=== PATIENT | male | born 1985 | race Caucasian/White ===

== ENCOUNTER 2016-10-23 22:15 | Emergency (ER) | payer MEDICAID ==
[~2016-10-23] VITALS: Ht 172.7 cm; Wt 85.0 kg
[~2016-10-23 22:15] MED LIST: IBUP800T23 PO; PERI0.126 SWISH-SPIT
[2016-10-23 22:18] VITALS: BP 141/90; PULSE 98; RESP 16; TEMP 98.6; O2SAT 99
[2016-10-23] MEDS ORDERED: KETOROLAC TROMETHAMINE 30 MG/ML (IVP) VIAL IVP ONE (22:45)
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
--- NOTE | 2016-10-23 22:55 | PD ---
Physical Exam Narrative General: The patient is a well-developed well-nourished male in no acute distress. Head and Neck exam: Head is normocephalic atraumatic. Eyes: EOMI, pupils are equal round and reactive to light. Nose: Midline septum with pink mucous membranes Mouth: Dentition unremarkable. Moist mucus membranes. Posterior oropharynx is not erythematous. No tonsillar hypertrophy. Uvula midline. Airway patent. Neck: No palpable lymphadenopathy. No nuchal rigidity. No thyromegaly. Cardiovascular: Regular rate and rhythm without murmurs, gallops, or rubs. Lungs: Clear to auscultation bilaterally. No wheezes, rhonchi, or rales. Abdomen: Soft, without tenderness to palpation in all 4 quadrants of the abdomen. No guarding, rebound, or rigidity. Normal bowel sounds are audible Extremities: No clubbing, cyanosis, or edema. 2+ pulses in all 4 extremities. Back: No spinous process tenderness to palpation. No costovertebral angle tenderness to palpation. The patient reports that his pain is improved after pain medication was administered by Ubaldo. Neurologic Exam: Grossly nonfocal Skin Exam: No rash noted. Intact skin that is warm and dry. Data Data Last Documented VS Vital Signs Date Time Temp Pulse Resp B/P Pulse Ox O2 Delivery O2 Flow Rate FiO2 10/23/16 22:18 98.6 98 16 141/90 99 Room Air Orders Urinalysis - C+S If Indicated (10/23/16 22:28) Ct Abd/Pel W/O Iv Contrast (10/23/16 22:34) Ketorolac Inj (Toradol Inj) (10/23/16 22:45) Ketorolac Inj (Toradol Inj) (10/23/16 23:00) Urine Culture (10/23/16 22:45) Gc And Chlamydia Pcr (10/23/16 23:46) Ceftriaxone Inj (Rocephin Inj) (10/24/16 00:00) Azithromycin Powd Pack (Zithromax Powd P (10/24/16 00:00) Lidocaine 1% Inj (50 Ml) (Xylocaine 1% I (10/24/16 00:15) Labs Laboratory Tests Test 10/23/16 22:45 Urine Color YELLOW Urine Turbidity CLOUDY Urine pH 6.5 Urine Specific [place] 1.023 Urine Protein 30 mg/dL Urine Glucose (UA) NEG mg/dL Urine Ketones NEG mg/dL Urine Occult Blood SMALL Urine Nitrite NEG Urine Bilirubin NEG Urine Urobilinogen 2.0 MG/DL Urine Leukocyte Esterase LARGE Urine RBC 6 /hpf Urine WBC /hpf Urine WBC Clumps RARE Urine Squamous Epithelial 6 /hpf Cells Urine Mucus FEW /lpf Microscopic Urinalysis Comment CULTURE INDICATED MDM Medical Record Reviewed: Yes Supervised Visit with LORENA: No Interpretation(s) Last Impressions Abdomen/Pelvis CT 10/23/162233 Signed Impressions: Service Date/Time: Sunday, October 23, 2016 23:32 - CONCLUSION: 1. 2.9 cm bladder stone. 2. Multiple bilateral nonobstructing renal stones. 3. Diverticulosis without evidence of diverticulitis. Torsten Bee MD Narrative Course During the course of the patients emergency department visit, the patients history, examination, and differential diagnosis were reviewed with the patient. The patient had a urine sent for analysis. The patient was initially evaluated by Gold. Please see his complete history and physical. The patient was provided Toradol IM for pain. The patients laboratory studies were reviewed and remarkable for a urinalysis that showed cloudy urine, 30 protein, small occult blood, large leukocyte Estrace, 6 RBCs, innumerable wbc's with rare clumps, culture indicated. GC and chlamydia was added the urine. Further questioning, the patient denies any new sexual contacts or concerns about sexually transmitted infections. The patient was however given Rocephin 250 IM, Zithromax 1 g by mouth for coverage of GC and chlamydia. CT scan of the abdomen and pelvis reveals a 2.9 cm bladder stone , multiple bilateral nonobstructing renal stones, diverticulosis without evidence of diverticulitis. The patient reports that he last saw a urologist approximately a year ago. He reports that he was seen by Dr. Vu. The patient was given his name and office address for follow-up. The patient is resting comfortably and feels better, is alert and in no distress. The patients results and examination findings were discussed with the patient. The repeat examination is unremarkable and benign. The history, exam, diagnostic testing, and current condition do not suggest any significant pathology to warrant further testing, continued ED treatment, admission, or surgical evaluation at this point. The vital signs have been stable. The patient does not have uncontrollable pain, intractable vomiting, or other significant symptoms. The patient's condition is stable and appropriate for discharge. The patient will pursue further outpatient evaluation with a primary care physician or other designated or consulting physician as indicated in the discharge instructions. The patient expressed understanding and was agreeable with this plan. Diagnosis Primary Impression: Urinary tract infection Qualified Code: N39.0 - Urinary tract infection with hematuria, site unspecified Additional Impressions: Bladder stone Kidney stones Referrals: Sameer Read MD 2 days Patient Instructions: General Instructions, Kidney Stones (ED), Urinary Tract Infection in Men (ED) Med/Other Pt SpecificInfo: Prescription(s) given Scripts Ciprofloxacin (Cipro)500 Mg Iqm730 Mg PO BID 7 Days Ref 0 Prov:Aide Hampton MD 10/24/16 Disposition: 01 DISCHARGE HOME Condition: Stable Aide Hampton MD Oct 23, 2016 22:55
[2016-10-23 22:59] LABS: BLOOD, URINE SMALL (NEG); COMMENT (UR) CULTURE INDICATED; CULTURE IF INDICATED CULTURE INDICATED; GLUCOSE,URINE NEG (NEG); KETONE, URINE NEG (NEG); MUCUS URINE FEW /lpf (OCC); NITRITE,URINE NEG (NEG); PH, URINE 6.5 (5.0-8.5); SQUAMOUS EPITHELIAL CELL URINE 6 /hpf (0-5); URINE COLOR YELLOW (YELLW/STRAW)
[2016-10-23] MEDS ORDERED: KETOROLAC TROMETHAMINE 60 MG/2 ML (IM) VIAL IM ONE (23:00)
[2016-10-24] MEDS ORDERED: cefTRIAXone 250 MG VIAL IM ONE
[2016-10-24] MEDS ORDERED: AZITHROMYCIN PWD FOR SUSP 1 GM PACKET PO ONE
[2016-10-24] MEDS ORDERED: LIDOCAINE HCL 1% 50 ML VIAL IM ONE (00:15)
--- NOTE | 2016-10-24 00:15 | RADRPT ---
EXAM DATE/TIME: 10/23/2016 23:32 [facility] COMPARISON: No previous studies available for comparison. INDICATIONS : Right flank pain and painful urination. ORAL CONTRAST: No oral contrast ingested. RADIATION DOSE: 5.03 CTDIvol (mGy) MEDICAL HISTORY : Renal calculi. Brain injury. SURGICAL HISTORY : None. ENCOUNTER: Initial ACUITY: 1 day PAIN SCALE: 6/10 LOCATION: Right flank TECHNIQUE: Volumetric scanning of the abdomen and pelvis was performed. Using automated exposure control and ad justment of the mA and/or kV according to patient size, radiation dose was kept as low as reasonably achievable to obtain optimal diagnostic quality images. FINDINGS: Examination of the lung bases demonstrates no abnormality. No pleural fluid is identified. No pulmona ry nodules are present. The liver and spleen are normal in size and no focal defects are identified. The gallbladder and pancreas are unremarkable. No intrahepatic or extrahepatic ductal dilatation is s een. The adrenal glands are unremarkable. There are multiple stones in both kidneys without hydroneph rosis the largest measuring 8 mm in the midpole on the right. Examination of the pelvis demonstrates no evidence of free fluid or pelvic mass. No abnormally enlarg ed inguinal or retroperitoneal lymph nodes are present. There is a 2.9 cm stone within the bladder. T here is diverticulosis without evidence of diverticulitis. There is an old fracture left acetabulum and left femur with severe and extensive myositis ossificans present. CONCLUSION: 1. 2.9 cm bladder stone. 2. Multiple bilateral nonobstructing renal stones. 3. Diverticulosis without evidence of diverticulitis. Torsten Bee MD on October 24, 2016 at 0:09 Board Certified Radiologist. This report was verified electronically.
[2016-10-24] MEDS ORDERED: CIPR-9 PO (01:39)
[2016-10-24 01:46] VITALS: BP 118/69
[2016-10-24 03:06] LABS: CHLAMYDIA PCR NOT DETECTED (NOT DETECT); NEISSERIA PCR NOT DETECTED (NOT DETECT)
== END 2016-10-24 01:57 | disposition home or self-care (01) ==
LOC: NEPE 22:15
DX: N39.0 Urinary tract infection, site not specified (principal); Z87.442 Personal history of urinary calculi; N20.0 Calculus of kidney; N21.0 Calculus in bladder; M19.90 Unspecified osteoarthritis, unspecified site; F41.8 Other specified anxiety disorders; F17.210 Nicotine dependence, cigarettes, uncomplicated; F12.10 Cannabis abuse, uncomplicated
CPT/HCPCS: 74176; 81001; 87086; 87491; 87591; 96372; 99284; J0696; J1885

== ENCOUNTER 2017-03-24 23:21 | Emergency (ER) | payer MEDICAID ==
[~2017-03-24] VITALS: Ht 172.7 cm; Wt 60.0 kg
[~2017-03-24 23:21] MED LIST changes: +CIPR-9 PO; -PERI0.126 SWISH-SPIT
[2017-03-24 23:24] VITALS: BP 137/97; PULSE 87; RESP 15; TEMP 98.6; O2SAT 99
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
--- NOTE | 2017-03-25 01:38 | RADRPT ---
EXAM DATE/TIME: 03/25/2017 01:09 [facility] COMPARISON: No previous studies available for comparison. INDICATIONS : Fall. Pain left foot. MEDICAL HISTORY : None. SURGICAL HISTORY : None. ENCOUNTER: Initial ACUITY: 1 day PAIN SCORE: 8/10 LOCATION: Left lateral FINDINGS: Three view examination of the left foot demonstrates no soft tissue swelling, dislocation, or fractur e. The tarsal bones appear intact. The interphalangeal and metatarsophalangeal joints are intact. The calcaneus is intact. Bony mineralization is normal. CONCLUSION: No acute disease. Koko Spivey MD on March 25, 2017 at 1:36 Board Certified Radiologist. This report was verified electronically.
== END 2017-03-25 02:05 | disposition home or self-care (01) ==
LOC: NEPE 23:21
DX: M79.672 Pain in left foot (principal); F17.210 Nicotine dependence, cigarettes, uncomplicated; F12.90 Cannabis use, unspecified, uncomplicated
CPT/HCPCS: 73630; 99283

== ENCOUNTER 2017-04-25 01:02 | Emergency (ER) | payer MEDICAID ==
[2017-04-25 01:05] VITALS: BP 127/82; PULSE 95; RESP 16; TEMP 98.7; O2SAT 98
[2017-04-25] MEDS ORDERED: DICL50TA3 PO (01:33)
[2017-04-25] MEDS ORDERED: CLIN150 PO (01:33)
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
[2017-04-25] MEDS ORDERED: AZITHROMYCIN PWD FOR SUSP 1 GM PACKET PO ONE (01:45)
== END 2017-04-25 01:58 | disposition home or self-care (01) ==
LOC: NEPD 01:02
DX: K02.9 Dental caries, unspecified (principal); N34.2 Other urethritis; K08.89 Other specified disorders of teeth and supporting structures
CPT/HCPCS: 64400

== ENCOUNTER 2017-04-27 04:06 | Emergency (ER) | payer MEDICAID ==
[~2017-04-27] VITALS: Ht 172.7 cm; Wt 64.5 kg
[~2017-04-27 04:06] MED LIST changes: -CIPR-9 PO; +CLIN150 PO; +DICL50TA3 PO; -IBUP800T23 PO
[2017-04-27 04:10] VITALS: BP 147/104; PULSE 94; RESP 18; TEMP 97.8; O2SAT 100
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
[2017-04-27] MEDS ORDERED: TRAM50TA PO (04:25)
[2017-04-27] MEDS ORDERED: MAGICADU2 SWISH-SPIT (04:25)
[2017-04-27] MEDS ORDERED: BUPIVACAINE HCL PF 0.5% 10 ML VIAL INFIL ONE (04:30)
[2017-04-27] MEDS ORDERED: LIDOCAINE HCL 1% PF 30 ML VIAL INFIL ONE (04:30)
[2017-04-27] MEDS ORDERED: ACETAMINOPHEN/HYDROcodone 325 MG/5 MG TAB PO ONE (05:00)
== END 2017-04-27 05:12 | disposition home or self-care (01) ==
LOC: NEPD 04:06
DX: K02.9 Dental caries, unspecified (principal); F41.9 Anxiety disorder, unspecified; F32.9 Major depressive disorder, single episode, unspecified; F17.200 Nicotine dependence, unspecified, uncomplicated; Z79.899 Other long term (current) drug therapy; Z88.0 Allergy status to penicillin; Z88.2 Allergy status to sulfonamides; Z88.8 Allergy status to other drugs, medicaments and biological substances
CPT/HCPCS: 64400; 99284

== ENCOUNTER 2017-05-25 00:46 | Emergency (ER) | payer OTHER, MEDICAID ==
[~2017-05-25] VITALS: Ht 172.7 cm; Wt 69.5 kg
[~2017-05-25 00:46] MED LIST changes: -CLIN150 PO; +MAGICADU2 SWISH-SPIT; +TRAM50TA PO
[2017-05-25 00:48] VITALS: BP 135/89; PULSE 110; RESP 16; TEMP 98.9; O2SAT 97
[2017-05-25] MEDS ORDERED: DICL50TA3 PO (01:30)
[2017-05-25] MEDS ORDERED: NAPROXEN 500 MG TAB PO ONE (01:30)
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
== END 2017-05-25 02:27 | disposition home or self-care (01) ==
LOC: NEPD 00:46
DX: S40.012A Contusion of left shoulder, initial encounter (principal); M54.2 Cervicalgia; V43.52XA Car driver injured in collision with other type car in traffic accident, initial encounter; Y92.414 Local residential or business street as the place of occurrence of the external cause
CPT/HCPCS: 73030; 99283

== ENCOUNTER 2017-08-22 14:49 | Emergency (ER) | payer MEDICAID ==
[2017-08-22 15:06] VITALS: BP 145/89; PULSE 112; RESP 16; TEMP 98.4; O2SAT 99
[2017-08-22] MEDS ORDERED: CLIN300C5 PO (15:31)
[2017-08-22] MEDS ORDERED: DICL50TA3 PO (15:31)
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
== END 2017-08-22 15:48 | disposition home or self-care (01) ==
LOC: PHEFT 14:49
DX: K04.7 Periapical abscess without sinus (principal); F17.200 Nicotine dependence, unspecified, uncomplicated
CPT/HCPCS: 99284

== ENCOUNTER 2017-12-08 17:03 | Emergency (ER) | payer MEDICAID ==
[~2017-12-08 17:03] MED LIST changes: +CLIN300C5 PO; -MAGICADU2 SWISH-SPIT; -TRAM50TA PO
[2017-12-08 17:25] VITALS: BP 122/78; PULSE 96; RESP 16; TEMP 99; O2SAT 99
[2017-12-08] MEDS ORDERED: LIDOCAINE 1%/EPINEPHrine 1:100,000 SOLN 20 ML VIAL INFIL ONE (18:00)
[2017-12-08] MEDS ORDERED: CLIN150C14 PO (18:08)
[2017-12-08] MEDS ORDERED: PERC5TAB12 PO (18:08)
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
[2017-12-08] MEDS ORDERED: CLINDAMYCIN 150 MG CAP PO ONE (18:15)
== END 2017-12-08 18:30 | disposition home or self-care (01) ==
LOC: PHEFT 17:03
DX: S02.5XXA Fracture of tooth (traumatic), initial encounter for closed fracture (principal); L03.211 Cellulitis of face; K02.9 Dental caries, unspecified; F41.9 Anxiety disorder, unspecified; F32.9 Major depressive disorder, single episode, unspecified; F17.200 Nicotine dependence, unspecified, uncomplicated; Z87.820 Personal history of traumatic brain injury; X58.XXXA Exposure to other specified factors, initial encounter
CPT/HCPCS: 64400

== ENCOUNTER 2018-02-24 19:16 | Emergency (ER) | payer MEDICAID ==
[~2018-02-24 19:16] MED LIST changes: +CLIN150C14 PO; -CLIN300C5 PO; -DICL50TA3 PO; +PERC5TAB12 PO
[2018-02-24 19:34] VITALS: BP 141/90; PULSE 109; RESP 18; TEMP 98.3; O2SAT 98
[2018-02-24] MEDS ORDERED: HYDR-3580 PO (20:17)
[2018-02-24] MEDS ORDERED: CLIN300C5 PO (20:17)
[2018-02-24] MEDS ORDERED: PERI0.126 SWISH-SPIT (20:26)
[2018-02-24] MEDS ORDERED: DICL75TA PO (20:26)
[2018-02-24] MEDS ORDERED: MAGICADU2 SWISH-SPIT (20:26)
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
== END 2018-02-24 20:59 | disposition home or self-care (01) ==
LOC: NEPD 19:16
DX: K08.89 Other specified disorders of teeth and supporting structures (principal); F41.9 Anxiety disorder, unspecified; F32.9 Major depressive disorder, single episode, unspecified; Z79.899 Other long term (current) drug therapy; Z88.0 Allergy status to penicillin; Z88.2 Allergy status to sulfonamides; Z88.8 Allergy status to other drugs, medicaments and biological substances; Z87.820 Personal history of traumatic brain injury
CPT/HCPCS: 99283

== ENCOUNTER 2018-06-22 11:19 | Inpatient (IN) ==
[2018-06-22 12:14] LABS: Baso % (Auto) 0.4 % (0.0-2.0); Eos # (Auto) 0.2 th/mm3 (0.0-0.4); Eos % (Auto) 2.8 % (0.0-4.0); Hematocrit 43.5 % (39.0-51.0); Hemoglobin 14.4 gm/dL (13.0-17.0); Lymph # (Auto) 2.1 th/mm3 (1.0-4.8); Lymph % (Auto) 28.4 % (9.0-44.0); Mean Corpuscular HGB Conc 33.1 % (32.0-36.0); Mean Corpuscular Hemoglobin 31.8 pg (27.0-34.0); Mean Corpuscular Volume 96.2 fL (80.0-100.0); Mean Platelet Volume 8.2 fL (7.0-11.0); Mono # (Auto) 0.5 th/mm3 (0.0-0.9); Mono % (Auto) 6.8 % (0.0-8.0); Neut # (Auto) 4.6 th/mm3 (1.8-7.7); Neut % (Auto) 61.6 % (16.0-70.0); Platelet Count 220 th/mm3 (150-450); Red Blood Count 4.52 mil/mm3 (4.50-5.90); Red Cell Distribution Width 13.7 % (11.6-17.2); White Blood Count 7.4 th/mm3 (4.0-11.0)
[2018-06-22 12:40] LABS: Albumin 3.9 g/dL (3.4-5.0); Anion Gap 5 meq/L (5-15); Aspartate Aminotransferase 16 U/L (15-37); Blood Urea Nitrogen 14 mg/dL (7-18); Calcium 9.2 mg/dL (8.5-10.1); Chloride 105 meq/L (98-107); Glomerular Filtration Rate Greater Than 89 mL/min (>89); Glucose,Random 80 mg/dL (74-106); Potassium 3.6 meq/L (3.5-5.1); Sodium 140 meq/L (136-145)
[2018-06-22 12:52] LABS: Alanine Aminotransferase 23 U/L (12-78); Alkaline Phosphatase 58 U/L (45-117); Total Protein 7.6 g/dL (6.4-8.2)
--- NOTE | 2018-06-22 12:58 | ED ---
HPI General Chief Complaint: Psychiatric Symptoms Stated Complaint: Psych Screen Time Seen by Provider: 06/22/18 11:57 Source: patient and other (Smalls act report) Mode of arrival: ambulatory Limitations: no limitations History of Present Illness HPI Narrative: 32-year-old male presents to the emergency department under Smalls act. According to the Smalls act report the patient has severe anxiety related to medical history and states that he has no motivation to live. He states that yesterday he plans to step into traffic to commit suicide but failed to follow through when he got onto the sidewalk. He is inconsolable and tearful through visit with tangential speech. On my examination the patient reports suicidal ideation. He walked from his house yesterday in an attempt to walk into traffic and when he got to the street he thought that he did not want to ruin someone else's life by trying to kill himself and decided not to do it. He has history of suicidal attempt by trying to hang himself. He denies homicidal ideations. History of self cutting. Denies any toxic ingestions. Says he just wants to feel pain. Says he feels like a waste of space. Says there is "no point in being here." Denies auditory visual hallucinations. Reports marijuana use. Denies alcohol use. Reports tobacco use. Onset unknown. Duration likely chronic. Says his symptoms are aggravated by his existence. No known relieving factors. Symptoms are moderate to severe in severity. Has no other medical complaints. Denies chest pain, shortness breath , abdominal pain, nausea, vomiting, change in urine or stool. History of bipolar disorder. Allergies to penicillins and sulfa. Denies significant past medical history. Primary CARE providers Dr. Meyer. No psychiatrist. Has no other medical complaints. No other modifying factors or associated signs and symptoms. Related Data Home Medications Medication Instructions Recorded Confirmed ketorolac 10 mg PO Q6H PRN 05/24/18 06/22/18 Previous Rx's Medication Instructions Recorded mirtazapine 15 mg PO HS 15 Days #15 tab 06/25/18 nitrofurantoin monohyd/m-cryst 100 mg PO BIDPC 6 Days cap 06/25/18 sertraline [Zoloft] 50 mg PO DAILY 15 Days #15 tab 06/25/18 Allergies Allergy/AdvReac Type Severity Reaction Status Date / Time amoxicillin Allergy Severe HIVES, SOB Verified 10/12/18 11:31 penicillin G Allergy Severe Hives Verified 06/22/18 11:31 sulfamethoxazole Allergy Intermediate Hives, SOB Verified 06/22/18 11:31 trimethoprim Allergy Intermediate Hives, SOB Verified 06/22/18 11:31 Review of Systems ROS: all other systems reviewed are negative PMFSH Medical History Medical History Foot drop (Acute) Traumatic brain injury (Acute) Social History Social History Substance History: Active Abuse Second Hand Smoke Exposure: Yes Smoking Status: Current every day smoker Tobacco Type: Cigarettes How Often Do You Have a Drink Containing Alcohol: Never Recent Travel in [facility] within the Last 8 Weeks: No Recent Out of Country Travel within the Last 8 Weeks: No Substance Abuse Detail Marijuana: Substance Use Status: Active Route Used Substance Abuse: Inhalation Last Used: 06/21/18 Immunization History Tetanus Immunization: Unsure Exam Narrative Exam Narrative: GENERAL: Well-nourished, well-developed male patient, in no acute distress; tearful SKIN: Warm and dry. HEAD: Atraumatic. Normocephalic. EYES: Pupils equal and round. ENT: Mucosa pink and moist. NECK: Supple. Trachea midline. CARDIOVASCULAR: Regular rate and rhythm. No murmur appreciated. RESPIRATORY: No accessory muscle use. Clear to auscultation. Breath sounds equal bilaterally. GASTROINTESTINAL: Abdomen soft, non-tender, nondistended. Hepatic and splenic margins not palpable. Bowel sounds are active 4 quadrants. MUSCULOSKELETAL: No obvious deformities. No clubbing. No cyanosis. No edema. BACK: No CVA tenderness. NEUROLOGICAL: Awake and alert. Oriented 3. No obvious cranial nerve deficits. Motor grossly within normal limits. Normal speech. Moves all extremities. 5/5 strength to all extremities. PSYCHIATRIC: No delusional thought processes. No hallucinations. Course Initial Documented Vital Signs Temperature 98.5 F 06/22/18 11:32 Pulse Rate 94 H 06/22/18 11:32 Respiratory Rate 16 06/22/18 11:32 Blood Pressure 126/85 06/22/18 11:32 Pulse Oximetry 97 06/22/18 11:32 Last Documented Vital Signs Temperature 98.0 F 06/25/18 04:53 Pulse Rate 70 10/15/18 04:53 Respiratory Rate 16 06/25/18 04:53 Blood Pressure 112/67 06/25/18 04:53 Pulse Oximetry 98 06/25/18 04:53 Medical Decision Making MDM Narrative Medical decision making narrative: Patient presents under a Smalls act. Physical examination and vital signs are essentially unremarkable. Patient has no medical complaints to report. Psych screen has been ordered. If the laboratory results are unremarkable, the patient will be medically cleared for psychiatric evaluation and disposition. Medical Screen Exam Complete: Yes Emergency Medical Condition: Yes Differential Diagnosis Differential Diagnosis: Suicidal ideation, depression, anxiety, adjustment disorder, medical clearance for psychiatric evaluation Lab Data Result diagrams: 06/22/18 11:40 06/23/18 07:31 Lab Results 06/22/18 06/22/18 06/22/18 Range/Units 11:40 11:40 11:40 WBC 7.4 (4.0-11.0) th/mm3 RBC 4.52 (4.50-5.90) mil/mm3 Hgb 14.4 (13.0-17.0) gm/dL Hct 43.5 (39.0-51.0) % MCV 96.2 (80.0-100.0) fL MCH 31.8 (27.0-34.0) pg MCHC 33.1 (32.0-36.0) % RDW 13.7 (11.6-17.2) % Plt Count 220 (150-450) th/mm3 MPV 8.2 (7.0-11.0) fL Neut % (Auto) 61.6 (16.0-70.0) % Lymph % (Auto) 28.4 (9.0-44.0) % Irion % (Auto) 6.8 (0.0-8.0) % Eos % (Auto) 2.8 (0.0-4.0) % Baso % (Auto) 0.4 (0.0-2.0) % Neut # (Auto) 4.6 (1.8-7.7) th/mm3 Lymph # (Auto) 2.1 (1.0-4.8) th/mm3 [place] # (Auto) 0.5 (0.0-0.9) th/mm3 Eos # (Auto) 0.2 (0.0-0.4) th/mm3 Baso # (Auto) 0.0 (0.0-0.2) th/mm3 WBC Differential . Differential Comment Auto diff final Sodium 140 (136-145) meq/L Potassium 3.6 (3.5-5.1) meq/L Chloride 105 (98-107) meq/L Carbon Dioxide 30.0 (21.0-32.0) meq/L Anion Gap 5 (5-15) meq/L BUN 14 (7-18) mg/dL Creatinine 0.93 (0.60-1.30) mg/dL Estimated GFR Greater than 89 (>89) mL/min Random Glucose 80 (74-106) mg/dL Hemoglobin A1c (4.3-6.0) % Calcium 9.2 (8.5-10.1) mg/dL Total Bilirubin 0.9 (0.2-1.0) mg/dL AST 16 (15-37) U/L ALT 23 (12-78) U/L Alkaline Phosphatase 58 (45-117) U/L Total Protein 7.6 (6.4-8.2) g/dL Albumin 3.9 (3.4-5.0) g/dL Triglycerides (42-150) mg/dL Cholesterol (120-200) mg/dL LDL Cholesterol, Calc (0-99) mg/dL HDL Cholesterol (40.0-60.0) mg/dL Cholesterol/HDL Ratio Ratio TSH 1.160 (0.358-3.740) uIU/mL Urine Color (Yellw/Straw) Urine Clarity (Clear) Urine pH (5.0-8.5) Ur Specific [place] (1.002-1.035) Urine Protein (Neg-Trace) mg/dL Urine Glucose (UA) (Negative) mg/dL Urine Ketones (Negative) mg/dL Urine Occult Blood (Negative) Urine Nitrate (Negative) Urine Bilirubin (Negative) Urine Urobilinogen (Less than 2) mg/dL Ur Leukocyte Esterase (Negative) Urine RBC (0-3) /hpf Urine WBC (0-5) /hpf Ur Squamous Epith Cells (0-5) /hpf Ur Renal Epithelial Cell (None) /hpf Urine Bacteria (None) /hpf Urine Mucus (Occasional) /lpf Micro UA Comment Ur Microscopic Review Urine Culture Comments Salicylates 1.9 L (2.8-20.0) mg/dL Urine Opiates Screen (Neg) Acetaminophen Less than 2.0 L (10.0-30.0) mcg/mL Ur Barbiturates Screen (Neg) Ur Amphetamines Screen (Neg) U Benzodiazepines Scrn (Neg) Urine Cocaine Screen (Neg) U Cannabinoids Screen (Neg) Serum Alcohol Less than 3 (0-5) mg/dL 06/22/18 06/23/18 06/23/18 Range/Units 14:00 07:31 07:31 WBC (4.0-11.0) th/mm3 RBC (4.50-5.90) mil/mm3 Hgb (13.0-17.0) gm/dL Hct (39.0-51.0) % MCV (80.0-100.0) fL MCH (27.0-34.0) pg MCHC (32.0-36.0) % RDW (11.6-17.2) % Plt Count (150-450) th/mm3 MPV (7.0-11.0) fL Neut % (Auto) (16.0-70.0) % Lymph % (Auto) (9.0-44.0) % Irion % (Auto) (0.0-8.0) % Eos % (Auto) (0.0-4.0) % Baso % (Auto) (0.0-2.0) % Neut # (Auto) (1.8-7.7) th/mm3 Lymph # (Auto) (1.0-4.8) th/mm3 Irion # (Auto) (0.0-0.9) th/mm3 Eos # (Auto) (0.0-0.4) th/mm3 Baso # (Auto) (0.0-0.2) th/mm3 WBC Differential Differential Comment Sodium 142 (136-145) meq/L Potassium 4.3 (3.5-5.1) meq/L Chloride 105 (98-107) meq/L Carbon Dioxide 30.3 (21.0-32.0) meq/L Anion Gap 7 (5-15) meq/L BUN 16 (7-18) mg/dL Creatinine 0.86 (0.60-1.30) mg/dL Estimated GFR Greater than 89 (>89) mL/min Random Glucose 84 (74-106) mg/dL Hemoglobin A1c 5.4 (4.3-6.0) % Calcium 8.8 (8.5-10.1) mg/dL Total Bilirubin (0.2-1.0) mg/dL AST (15-37) U/L ALT (12-78) U/L Alkaline Phosphatase (45-117) U/L Total Protein (6.4-8.2) g/dL Albumin (3.4-5.0) g/dL Triglycerides 99 (42-150) mg/dL Cholesterol 138 (120-200) mg/dL LDL Cholesterol, Calc 76 (0-99) mg/dL HDL Cholesterol 42.2 (40.0-60.0) mg/dL Cholesterol/HDL Ratio 3.27 Ratio TSH (0.358-3.740) uIU/mL Urine Color (Yellw/Straw) Urine Clarity (Clear) Urine pH (5.0-8.5) Ur Specific [place] (1.002-1.035) Urine Protein (Neg-Trace) mg/dL Urine Glucose (UA) (Negative) mg/dL Urine Ketones (Negative) mg/dL Urine Occult Blood (Negative) Urine Nitrate (Negative) Urine Bilirubin (Negative) Urine Urobilinogen (Less than 2) mg/dL Ur Leukocyte Esterase (Negative) Urine RBC (0-3) /hpf Urine WBC (0-5) /hpf Ur Squamous Epith Cells (0-5) /hpf Ur Renal Epithelial Cell (None) /hpf Urine Bacteria (None) /hpf Urine Mucus (Occasional) /lpf Micro UA Comment Ur Microscopic Review Urine Culture Comments Salicylates (2.8-20.0) mg/dL Urine Opiates Screen Neg (Neg) Acetaminophen (10.0-30.0) mcg/mL Ur Barbiturates Screen Neg (Neg) Ur Amphetamines Screen Neg (Neg) U Benzodiazepines Scrn Neg (Neg) Urine Cocaine Screen Neg (Neg) U Cannabinoids Screen Pos H (Neg) Serum Alcohol (0-5) mg/dL 06/24/18 Range/Units 05:00 WBC (4.0-11.0) th/mm3 RBC (4.50-5.90) mil/mm3 Hgb (13.0-17.0) gm/dL Hct (39.0-51.0) % MCV (80.0-100.0) fL MCH (27.0-34.0) pg MCHC (32.0-36.0) % RDW (11.6-17.2) % Plt Count (150-450) th/mm3 MPV (7.0-11.0) fL Neut % (Auto) (16.0-70.0) % Lymph % (Auto) (9.0-44.0) % Irion % (Auto) (0.0-8.0) % Eos % (Auto) (0.0-4.0) % Baso % (Auto) (0.0-2.0) % Neut # (Auto) (1.8-7.7) th/mm3 Lymph # (Auto) (1.0-4.8) th/mm3 [place]ion # (Auto) (0.0-0.9) th/mm3 Eos # (Auto) (0.0-0.4) th/mm3 Baso # (Auto) (0.0-0.2) th/mm3 WBC Differential Differential Comment Sodium (136-145) meq/L Potassium (3.5-5.1) meq/L Chloride (98-107) meq/L Carbon Dioxide (21.0-32.0) meq/L Anion Gap (5-15) meq/L BUN (7-18) mg/dL Creatinine (0.60-1.30) mg/dL Estimated GFR (>89) mL/min Random Glucose (74-106) mg/dL Hemoglobin A1c (4.3-6.0) % Calcium (8.5-10.1) mg/dL Total Bilirubin (0.2-1.0) mg/dL AST (15-37) U/L ALT (12-78) U/L Alkaline Phosphatase (45-117) U/L Total Protein (6.4-8.2) g/dL Albumin (3.4-5.0) g/dL Triglycerides (42-150) mg/dL Cholesterol (120-200) mg/dL LDL Cholesterol, Calc (0-99) mg/dL HDL Cholesterol (40.0-60.0) mg/dL Cholesterol/HDL Ratio Ratio TSH (0.358-3.740) uIU/mL Urine Color Yellow (Yellw/Straw) Urine Clarity Hazy H (Clear) Urine pH 6.0 (5.0-8.5) Ur Specific [place] 1.015 (1.002-1.035) Urine Protein Negative (Neg-Trace) mg/dL Urine Glucose (UA) Negative (Negative) mg/dL Urine Ketones Negative (Negative) mg/dL Urine Occult Blood Small H (Negative) Urine Nitrate Negative (Negative) Urine Bilirubin Negative (Negative) Urine Urobilinogen Less than 2 (Less than 2) mg/dL Ur Leukocyte Esterase Large H (Negative) Urine RBC 11 H (0-3) /hpf Urine WBC 73 H (0-5) /hpf Ur Squamous Epith Cells 1 (0-5) /hpf Ur Renal Epithelial Cell <1 (None) /hpf Urine Bacteria Rare H (None) /hpf Urine Mucus Few H (Occasional) /lpf Micro UA Comment Culture indicated Ur Microscopic Review Not Reportable Urine Culture Comments Culture indicated Salicylates (2.8-20.0) mg/dL Urine Opiates Screen (Neg) Acetaminophen (10.0-30.0) mcg/mL Ur Barbiturates Screen (Neg) Ur Amphetamines Screen (Neg) U Benzodiazepines Scrn (Neg) Urine Cocaine Screen (Neg) U Cannabinoids Screen (Neg) Serum Alcohol (0-5) mg/dL Discharge Plan Discharge Disposition Patient Disposition: 30 Still Patient Discharge Condition Condition: Stable Discharge Order Discharge Orders: Discharge Order (Routine); Ordered 06/25/18 Ordered By: Torsten Fung Discharge Details Anticipated Discharge Date: 06/25/18 Physicians Team ED Provider: Tobi Burrell ED Midlevel Provider: Danica Mendez Primary Care Provider: Jaci Meyer Attending Provider: Torsten Fung Other Providers: Ada Umanzor ; Joe Green ; Utilizer, High Service Status ED Status: Left Department Discharge Information Discharge Date/Time: 06/22/18 16:57
[2018-06-22 15:40] LABS: Amphetamine Screen,Urine Neg (Neg); Barbiturate Screen,Urine Neg (Neg); Cannabinoid Screen,Urine Pos (Neg); Cocaine Screen,Urine Neg (Neg)
[2018-06-22 15:41] LABS: Opiate Screen,Urine Neg (Neg)
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
[2018-06-22] MEDS ORDERED: Aluminum/Magnesium/Simethacone Susp 30 ML UDC PO PRN (16:09)
[2018-06-22] MEDS: Ketorolac 10 MG Tablet PO PRN (22:11)
[2018-06-23] MEDS: Ketorolac 10 MG Tablet PO PRN ×2 (05:24→11:49)
[2018-06-23 08:52] LABS: Anion Gap 7 meq/L (5-15); Blood Urea Nitrogen 16 mg/dL (7-18); Calcium 8.8 mg/dL (8.5-10.1); Carbon Dioxide 30.3 meq/L (21.0-32.0); Chloride 105 meq/L (98-107); Cholesterol 138 mg/dL (120-200); Glomerular Filtration Rate Greater Than 89 mL/min (>89); Glucose,Random 84 mg/dL (74-106); Potassium 4.3 meq/L (3.5-5.1); Sodium 142 meq/L (136-145); Triglycerides 99 mg/dL (42-150)
[2018-06-23 08:55] LABS: Chol/HDL Ratio 3.27 Ratio; HDL Cholesterol 42.2 mg/dL (40.0-60.0); LDL Cholesterol,Calculated 76 mg/dL (0-99)
[2018-06-23] MEDS: LORazepam 0.5 MG Tablet PO PRN ×2 (11:49→22:05)
[2018-06-23 12:58] LABS: Hemoglobin A1c 5.4 % (4.3-6.0)
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
[2018-06-23] MEDS: Sertraline 50 MG Tablet PO SCH (15:05)
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
[2018-06-23] MEDS: Ibuprofen 600 MG Tablet PO PRN (22:04)
[2018-06-23] MEDS: Mirtazapine 15 MG Tablet PO SCH (22:05)
[2018-06-24 05:37] LABS: Bacteria,Urine Rare /hpf; Bilirubin,Urine Negative (Negative); Clarity,Urine Hazy (Clear); Color,Urine Yellow (Yellw/Straw); Glucose,Urine (UA) Negative (Negative); Leukocyte Esterase,Urine Large (Negative); Mucus,Urine Few /lpf (Occasional); Nitrite,Urine Negative (Negative); Renal Epithelial Cells,Urine <1 /hpf; Specific Gravity,Urine 1.015 (1.002-1.035); Squamous Epithelial Cell,Urine 1 /hpf (0-5)
[2018-06-24 06:03] VITALS: RESP 16; O2SAT 98
[2018-06-24] MEDS: Sertraline 50 MG Tablet PO SCH (08:42)
[2018-06-24] MEDS: Nitrofurantoin Monohydrate-Macrocrystal 100 MG Capsule PO SCH ×2 (09:51→18:04)
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
--- NOTE | 2018-06-24 16:15 | ECG ---
Date Performed: 06/23/2018 Time Performed: 13:02:53 PTAGE: 32 years EKG: Sinus rhythm POSSIBLE RIGHT VENTRICULAR CONDUCTION DELAY BORDERLINE ECG Compared to PREVIOUS TRACING , the slight right ventricular conduction disturbance is new, otherwise no significant change. PREVIOUS TRACIN02/02/2012 22.00 DOCTOR: Mohinder Brizuela Interpretating Date/Time 06/24/2018 16:14:37
[2018-06-24] MEDS: Ibuprofen 600 MG Tablet PO PRN (18:15)
[2018-06-24] MEDS: Mirtazapine 15 MG Tablet PO SCH (21:17)
[2018-06-25 04:54] VITALS: BP 112/67; PULSE 70; TEMP 98
[2018-06-25] MEDS: Ibuprofen 600 MG Tablet PO PRN (05:08)
[2018-06-25] MEDS: Nitrofurantoin Monohydrate-Macrocrystal 100 MG Capsule PO SCH (08:56)
[2018-06-25] MEDS: Sertraline 50 MG Tablet PO SCH (08:56)
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
== END 2018-06-25 15:45 | disposition home or self-care (01) ==
LOC: NEPD 11:19 → NEDA 16:11 → H260 17:08
PROVIDERS: ADMIT Psychiatry & Neurology Psychiatry; ATTEND Psychiatry & Neurology Psychiatry